=== PATIENT | male | born 1940 | race Caucasian/White ===

== ENCOUNTER → 2018-02-17 | Outpatient (CLI) | payer MEDICARE | LOC: M.RAD 10:03 | DX: M25.551 Pain in right hip (principal) ==

== ENCOUNTER → 2020-02-25 | Outpatient (CLI) | payer MEDICARE | LOC: M.MRI 13:44 | DX: M50.123 Cervical disc disorder at C6-C7 level with radiculopathy (principal); M50.30 Other cervical disc degeneration, unspecified cervical region; M48.02 Spinal stenosis, cervical region ==

== ENCOUNTER → 2020-12-13 | Outpatient (CLI) | payer MEDICARE | LOC: M.ULTRA 15:22 | DX: H53.453 Other localized visual field defect, bilateral (principal); H34.219 Partial retinal artery occlusion, unspecified eye; I73.9 Peripheral vascular disease, unspecified ==

== ENCOUNTER → 2021-09-25 | Outpatient (CLI) | payer MEDICARE | LOC: M.MRI 08:13 | DX: M50.323 Other cervical disc degeneration at C6-C7 level (principal); M50.33 Other cervical disc degeneration, cervicothoracic region; M48.02 Spinal stenosis, cervical region; M47.812 Spondylosis without myelopathy or radiculopathy, cervical region ==